=== PATIENT | female | born 2005 | race Caucasian/White ===

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

== ENCOUNTER 2025-01-05 01:40 | Observation (INO) | payer BC, OTHER ==
[2025-01-05 02:06] LABS: Amorphous Sediment,Urine Occasional /hpf; Appearance,Urine Cloudy (Clear); Bilirubin,Urine Negative (Negative); Blood,Urine Moderate (Negative); Color,Urine Colorless; Glucose,Urine (UA) Negative (Negative); Hyaline Casts,Urine 39 /lpf (0-2); Ketones,Urine Negative (Negative); Leukocyte Esterase,Urine Large (Negative); Mucus,Urine Moderate /hpf; Nitrite,Urine Negative (Negative); Protein,Urine 2+ (Negative); RBC,Urine >182 /hpf (0-5); Specific Gravity,Urine 1.015 (1.001-1.035); Squamous Epithelial Cell,Urine 4 /hpf (0-4); Urobilinogen,Urine <2.0 mg/dL (<2.0); WBC,Urine >182 /hpf (0-5)
[2025-01-05] MEDS: LACTATED RINGERS 1,000 ML IV SCH (02:56)
[2025-01-05] MEDS: ceFAZolin 2 GM in DEXTROSE 5% IN WATER 50 ML IVPB SCH (02:57)
[2025-01-05 03:24] LABS: ALT 13 U/L (4-34); AST 23 U/L (14-36); African American GFR (CKD) >90 (>60 ml/min/1.73 sqM); Albumin 3.6 g/dL (3.5-5.0); Alkaline Phosphatase 87 U/L (38-126); Anion Gap 7 mmol/L; Blood Urea Nitrogen 4 mg/dL (7-17); Calcium 9.1 mg/dL (8.4-10.2); Carbon Dioxide 22 mmol/L (22-30); Chloride 104 mmol/L (98-107); Glucose 92 mg/dL (74-99); Non-African American GFR(CKD) >90 (>60 ml/min/1.73 sqM); Sodium 133 mmol/L (137-145); Total Bilirubin 0.5 mg/dL (0.2-1.3); Total Protein 6.6 g/dL (6.3-8.2)
[2025-01-05 03:36] LABS: Basophils # (A) 0.02 10*3/uL (0.00-0.10); Basophils % (A) 0.1 %; Eosinophils # (A) 0.07 10*3/uL (0.04-0.35); Eosinophils % (A) 0.5 %; HCT 30.8 % (37.2-46.3); HGB 10.3 g/dL (12.0-15.0); Lymphocytes # (A) 1.97 10*3/uL (0.90-5.00); Lymphocytes % (A) 12.7 %; MCH 28.9 pg (27.0-32.0); MCHC 33.4 g/dL (32.0-37.0); MCV 86.3 fL (80.0-97.0); Mean Platelet Volume 10.8 fL (9.5-12.2); Monocytes # (A) 1.56 10*3/uL (0.20-1.00); Neutrophils # (A) 11.86 10*3/uL (1.80-7.70); Neutrophils % (A) 76.2 %; Platelet Count 355 10*3/uL (140-440); RBC 3.57 10*6/uL (4.10-5.20); RDW 13.2 % (11.5-14.5); WBC 15.55 10*3/uL (4.50-10.00)
[2025-01-05] MEDS: ACETAMINOPHEN IV (For NPO) 1,000 MG in EMPTY BAG 1 BAG IVPB PRN (03:37)
[2025-01-05] MEDS: ONDANSETRON 4 MG/2 ML VIAL IVP STA (04:01)
[2025-01-05] MEDS: ONDANSETRON 4 MG/2 ML VIAL IM STA (04:02)
[2025-01-05] MEDS ORDERED: ONDANSETRON 4 MG/2 ML VIAL IVP PRN (07:35)
--- NOTE | 2025-01-05 08:19 | P.HPOB ---
History of Present Illness H&P Date: 01/05/25 Chief Complaint: Right flank pain Ms. Britton is a 19 year old at 28 weeks and 5 days gestation with EDC of 03/25/2025 by 12 week who presents for the second admission for right flank pain. At her last admission, approximately 1 month ago, she had suspected right pyelonephritis. She was treated with Rocephin and pain management. She was transitioned to PO antibiotics guided by the urine culture and completed 14 days of treatment with improvement in pain and symptoms. Yesterday evening she presents again with right flank pain. Urinalysis is significant with >182 WBC and >182 RBC. She also presented with nausea, vomiting. She has been afebrile. She has leukocytosis of 15. She was started by the covering physician on Kefzol. Past Medical History Past Medical History: No Reported History Additional Past Medical History / Comment(s): migraines, PCOS History of Any Multi-Drug Resistant Organisms: None Reported Past Surgical History: Adenoidectomy, Tonsillectomy Past Anesthesia/Blood Transfusion Reactions: No Reported Reaction Past Psychological History: No Psychological Hx Reported Smoking Status: Never smoker Past Alcohol Use History: None Reported Past Drug Use History: None Reported Medications and Allergies Home Medications Medication Instructions Recorded Confirmed Type Vit No.179/Iron/Folic 1 tab PO DAILY 12/10/24 01/05/25 History [ Tablet] Amoxic-Pot Clav 875-125Mg 1 tab PO BID 12 Days #24 tab 12/12/24 01/05/25 Rx [Augmentin 875-125] Terconazole [Terazol 7] 1 applicator VAGINAL HS 7 Days #45 12/12/24 01/05/25 Rx gm Allergies Allergy/AdvReac Type Severity Reaction Status Date / Time No Known Allergies Allergy Verified 12/10/24 22:11 Exam Vital Signs Temp Pulse Resp BP Pulse Ox 01/05/25 02:36 97.7 F 96 16 109/58 99 01/05/25 01:46 97.7 F 96 16 109/58 99 Intake and Output 01/04/25 01/05/25 01/05/25 22:59 06:59 14:59 Other: # Voids 1 Weight 81.647 kg Focused physical exam is performed. The patient is in no apparent distress, breathing is non-labored. Abdomen soft, gravid, tender to palpation in RLQ. Extremities are non-tender and non-edematous. NST reactive and reassuring on admission. Results Result Diagrams: 01/05/25 02:45 01/05/25 02:45 Abnormal Lab Results - Last 24 Hours (Table) 01/05/25 01/05/25 01/05/25 Range/Units 01:50 02:45 02:45 WBC 15.55 H (4.50-10.00) 10*3/uL RBC 3.57 L (4.10-5.20) 10*6/uL Hgb 10.3 L (12.0-15.0) g/dL Hct 30.8 L (37.2-46.3) % Immature Gran # 0.07 H (0.00-0.04) 10*3/uL Neutrophils # 11.86 H (1.80-7.70) 10*3/uL Monocytes # 1.56 H (0.20-1.00) 10*3/uL Sodium 133 L (137-145) mmol/L BUN 4 L (7-17) mg/dL Creatinine 0.31 L (0.52-1.04) mg/dL Urine Appearance Cloudy H (Clear) Urine Protein 2+ H (Negative) Urine Blood Moderate H (Negative) Ur Leukocyte Esterase Large H (Negative) Urine RBC >182 H (0-5) /hpf Urine WBC >182 H (0-5) /hpf Urine WBC Clumps Occasional H (None) /hpf Amorphous Sediment Occasional H (None) /hpf Hyaline Casts 39 H (0-2) /lpf Urine Mucus Moderate H (None) /hpf Assessment and Plan Assessment: 19 year old at 28 weeks and 5 days with suspected right nephrolithiasis Plan: IV Kefzol, Tylenol prn pain, Zofran prn nausea/vomiting. Appreciated recommendations from Urology. Continue inpatient management at this time.
[2025-01-05] MEDS: PRENATAL VIT-IRON-FOLIC ACID 1 EACH TABLET PO SCH (10:08)
[2025-01-05 21:11] VITALS: TEMP 97.6
--- NOTE | 2025-01-05 22:31 | P.GSCN ---
History of Present Illness Consult date: 01/05/25 Reason for Consult: UTI Requesting physician: Bita Pina History of present illness: The patient is a 19 year old at 28 weeks and 5 days gestation with EDC of 03/25/2025 by 12 week . She was admitted approximately 1 month ago with right flank pain, presumably due to right pyelonephritis. Urine culture at that time showed Staph hemolyticus. She was treated with IV Rocephin, followed by oral antibiotics. Yesterday, she experienced right flank pain, associated with nausea and vomiting. Urinalysis shows greater than 182 WBC and greater than 182 RBC. She has been treated for 1 prior UTI, approximately 1 year ago. She denies any prior history of urolithiasis. She states that the nausea and vo miting have resolved, and her right flank discomfort is minimal at this time. Review of Systems - Constitutional Denies chills, Denies fever - Gastrointestinal Reports nausea, Reports vomiting - Genitourinary Genitourinary: Reports flank pain, Denies dysuria, Denies hematuria, Denies kidney stones Past Medical History Past Medical History: No Reported History Additional Past Medical History / Comment(s): migraines, PCOS History of Any Multi-Drug Resistant Organisms: None Reported Past Surgical History: Adenoidectomy, Tonsillectomy Past Anesthesia/Blood Transfusion Reactions: No Reported Reaction Past Psychological History: No Psychological Hx Reported Smoking Status: Never smoker Past Alcohol Use History: None Reported Past Drug Use History: None Reported Medications and Allergies Home Medications Medication Instructions Recorded Confirmed Type Vit No.179/Iron/Folic 1 tab PO DAILY 12/10/24 01/05/25 History [ Tablet] Amoxic-Pot Clav 875-125Mg 1 tab PO BID 12 Days #24 tab 12/12/24 01/05/25 Rx [Augmentin 875-125] Terconazole [Terazol 7] 1 applicator VAGINAL HS 7 Days #45 12/12/24 01/05/25 Rx gm Allergies Allergy/AdvReac Type Severity Reaction Status Date / Time No Known Allergies Allergy Verified 12/10/24 22:11 Surgical - Exam Vital Signs Temp Pulse Resp BP Pulse Ox 97.7 F 96 16 109/58 99 01/05/25 01:46 01/05/25 01:46 01/05/25 01:46 01/05/25 01:46 01/05/25 01:46 Results - Labs 01/05/25 02:45 01/05/25 02:45 Abnormal Lab Results - Last 24 Hours (Table) 01/05/25 01/05/25 01/05/25 Range/Units 01:50 02:45 02:45 WBC 15.55 H (4.50-10.00) 10*3/uL RBC 3.57 L (4.10-5.20) 10*6/uL Hgb 10.3 L (12.0-15.0) g/dL Hct 30.8 L (37.2-46.3) % Immature Gran # 0.07 H (0.00-0.04) 10*3/uL Neutrophils # 11.86 H (1.80-7.70) 10*3/uL Monocytes # 1.56 H (0.20-1.00) 10*3/uL Sodium 133 L (137-145) mmol/L BUN 4 L (7-17) mg/dL Creatinine 0.31 L (0.52-1.04) mg/dL Urine Appearance Cloudy H (Clear) Urine Protein 2+ H (Negative) Urine Blood Moderate H (Negative) Ur Leukocyte Esterase Large H (Negative) Urine RBC >182 H (0-5) /hpf Urine WBC >182 H (0-5) /hpf Urine WBC Clumps Occasional H (None) /hpf Amorphous Sediment Occasional H (None) /hpf Hyaline Casts 39 H (0-2) /lpf Urine Mucus Moderate H (None) /hpf Diabetes panel 01/05/25 Range/Units 02:45 Sodium 133 L (137-145) mmol/L Potassium 4.0 (3.5-5.1) mmol/L Chloride 104 (98-107) mmol/L Carbon Dioxide 22 (22-30) mmol/L BUN 4 L (7-17) mg/dL Creatinine 0.31 L (0.52-1.04) mg/dL Glucose 92 (74-99) mg/dL Calcium 9.1 (8.4-10.2) mg/dL AST 23 (14-36) U/L ALT 13 (4-34) U/L Alkaline Phosphatase 87 (38-126) U/L Total Protein 6.6 (6.3-8.2) g/dL Albumin 3.6 (3.5-5.0) g/dL Calcium panel 01/05/25 Range/Units 02:45 Calcium 9.1 (8.4-10.2) mg/dL Albumin 3.6 (3.5-5.0) g/dL Pituitary panel 01/05/25 Range/Units 02:45 Sodium 133 L (137-145) mmol/L Potassium 4.0 (3.5-5.1) mmol/L Chloride 104 (98-107) mmol/L Carbon Dioxide 22 (22-30) mmol/L BUN 4 L (7-17) mg/dL Creatinine 0.31 L (0.52-1.04) mg/dL Glucose 92 (74-99) mg/dL Calcium 9.1 (8.4-10.2) mg/dL Adrenal panel 01/05/25 Range/Units 02:45 Sodium 133 L (137-145) mmol/L Potassium 4.0 (3.5-5.1) mmol/L Chloride 104 (98-107) mmol/L Carbon Dioxide 22 (22-30) mmol/L BUN 4 L (7-17) mg/dL Creatinine 0.31 L (0.52-1.04) mg/dL Glucose 92 (74-99) mg/dL Calcium 9.1 (8.4-10.2) mg/dL Total Bilirubin 0.5 (0.2-1.3) mg/dL AST 23 (14-36) U/L ALT 13 (4-34) U/L Alkaline Phosphatase 87 (38-126) U/L Total Protein 6.6 (6.3-8.2) g/dL Albumin 3.6 (3.5-5.0) g/dL Assessment and Plan (1) Pyelonephritis Current Visit: No Status: Acute Code(s): N12 - TUBULO-INTERSTITIAL NEPHRITIS, NOT SPCF ACUTE OR CHRONIC SNOMED Code(s): 84875470 Plan: The patient is currently receiving cefazolin, pending a urine culture result. We discussed the fact that a KUB x-ray and low-dose CT scan can be safely performed during , but for now a renal ultrasound will be obtained. I did explain to the patient that this may be of limited value as right hydronephrosis is common during . In any case, I will recommend intervention only for intractable symptoms. Time with Patient: Greater than 30
[2025-01-06 01:48] VITALS: BP 96/55; PULSE 81; RESP 15
--- NOTE | 2025-01-06 07:10 | US ---
EXAMINATION TYPE: US kidneys/renal and bladder DATE OF EXAM: 01/05/2025 COMPARISON: NONE CLINICAL INDICATION: Female, 19 years old with history of Right flank pain; patient is . righ t flank pain TECHNIQUE: Grayscale imaging of the bilateral kidneys and urinary bladder: FINDINGS: EXAM MEASUREMENTS: Right Kidney: 12.4 x 6.1 x 5.8 cm Left Kidney: 11.6 x 6.0 x 4.8 cm Right Kidney: slightly enlarged, ? Left Kidney: wnl Bladder: wnl Bilateral Jets seen: yes There is no evidence for hydronephrosis at this point in time. No nephrolithiasis is seen. No sirisha s are identified. The urinary bladder is anechoic. IMPRESSION: Mild dilation of the right renal collecting system which may normal physiology in a patient. [facility], , 01/06/2025 7:08 AM
[2025-01-06 07:16] LABS: Basophils # (A) 0.03 10*3/uL (0.00-0.10); Basophils % (A) 0.3 %; Eosinophils # (A) 0.19 10*3/uL (0.04-0.35); Eosinophils % (A) 1.9 %; HCT 29.7 % (37.2-46.3); HGB 9.5 g/dL (12.0-15.0); MCH 28.4 pg (27.0-32.0); MCV 88.9 fL (80.0-97.0); Mean Platelet Volume 10.4 fL (9.5-12.2); Monocytes # (A) 1.25 10*3/uL (0.20-1.00); Monocytes % (A) 12.5 %; Neutrophils # (A) 6.09 10*3/uL (1.80-7.70); Neutrophils % (A) 60.7 %; Platelet Count 299 10*3/uL (140-440); RBC 3.34 10*6/uL (4.10-5.20); RDW 13.5 % (11.5-14.5); WBC 10.02 10*3/uL (4.50-10.00)
[2025-01-06 07:30] LABS: ALT 10 U/L (4-34); AST 17 U/L (14-36); African American GFR (CKD) >90 (>60 ml/min/1.73 sqM); Alkaline Phosphatase 82 U/L (38-126); Anion Gap 6 mmol/L; Blood Urea Nitrogen <2 mg/dL (7-17); Calcium 8.5 mg/dL (8.4-10.2); Carbon Dioxide 21 mmol/L (22-30); Chloride 107 mmol/L (98-107); Glucose 80 mg/dL (74-99); Non-African American GFR(CKD) >90 (>60 ml/min/1.73 sqM); Potassium 3.8 mmol/L (3.5-5.1); Sodium 134 mmol/L (137-145); Total Bilirubin 0.4 mg/dL (0.2-1.3); Total Protein 5.8 g/dL (6.3-8.2)
--- NOTE | 2025-01-06 10:47 | P.PN ---
Subjective Progress Note Date: 01/06/25 Principal diagnosis: Right flank pain The patient is quite comfortable this morning. She is receiving cefazolin. Urine culture showed greater than 100,000 mixed organisms, likely contaminants. Renal ultrasound showed minimal right pyelocaliectasis, as expected at this stage of . No calculi were seen. Objective - Vital Signs Vital signs: Vital Signs Temp 97.6 F 01/06/25 00:35 Pulse 81 01/06/25 00:35 Resp 15 01/06/25 00:35 BP 96/55 01/06/25 00:35 Pulse Ox 97 01/06/25 00:35 FiO2 Intake & Output 01/05/25 01/06/25 01/06/25 18:59 06:59 18:59 Intake Total 1999 Balance 1999 Intake: IV 2000 Invasive Line 1 1000 Other: # Voids 2 3 - Constitutional General appearance: Present: average body habitus, cooperative, no acute distress - Psychiatric Psychiatric: Present: A&O x's 3 - Labs CBC & Chem 7: 01/06/25 06:47 01/06/25 06:47 Labs: Abnormal Lab Results - Last 24 Hours (Table) 01/06/25 01/06/25 Range/Units 06:47 06:47 WBC 10.02 H (4.50-10.00) 10*3/uL RBC 3.34 L (4.10-5.20) 10*6/uL Hgb 9.5 L (12.0-15.0) g/dL Hct 29.7 L (37.2-46.3) % Immature Gran # 0.06 H (0.00-0.04) 10*3/uL Monocytes # 1.25 H (0.20-1.00) 10*3/uL Sodium 134 L (137-145) mmol/L Carbon Dioxide 21 L (22-30) mmol/L BUN <2 L (7-17) mg/dL Creatinine 0.32 L (0.52-1.04) mg/dL Total Protein 5.8 L (6.3-8.2) g/dL Albumin 3.0 L (3.5-5.0) g/dL Microbiology - Last 24 Hours (Table) 01/05/25 01:50 Urine Culture - Final Urine,Voided Assessment and Plan (1) Pyelonephritis Current Visit: No Status: Acute Code(s): N12 - TUBULO-INTERSTITIAL NEPHRITIS, NOT SPCF ACUTE OR CHRONIC SNOMED Code(s): 67517525 Plan: Ultrasound showed no renal calculi. The right pyelocaliectasis could be due to a right ureteral calculus, but is likely the physiologic hydronephrosis of . In any case, I do not recommend any further evaluation or treatment as long as the patient remains reasonably comfortable. From a urologic standpoint, she may be discharged home and follow-up with me as needed in the future. Please notify me if I can be of any further assistance.
[2025-01-06] MEDS: ACETAMINOPHEN TAB 500 MG TAB PO STA (12:50)
--- NOTE | 2025-01-06 12:56 | P.DS ---
Providers Date of admission: 01/05/25 02:28 Expected date of discharge: 01/06/25 Attending physician: Bita Pina MD Consults: 01/05/25 08:03 Consult Physician Routine Consulting Provider: Aleksey Stallings Consult Reason/Comments: kidney stone Do you want consulting provider notified?: Yes Primary care physician: Stated None Hospital Course: Ms. Britton is 19 year old at 28 weeks and 6 days presenting for second episode of right flank pain, nausea, and vomiting over the past month. On urinalysis, there was suspicion for nephrolithiasis. She was given 2 days of IV Kefzol. Urology was consulted and ordered a RPUS, which just showed related changes and no evidence of a stone. Urine culture was contaminated and merely showed normal skin/genital analilia. The patient's symptoms have improved today. She will go home today with outpatient follow up at my office and with [facility] as needed for recurrent symptoms. Good hydration is encouraged as well as Tylenol as needed for back pain. All questions answered. Patient Condition at Discharge: Good Plan - Discharge Summary New Discharge Prescriptions: No Action Vit No.179/Iron/Folic [ Tablet] 1 tab PO DAILY Amoxic-Pot Clav 875-125Mg [Augmentin 875-125] 1 tab PO BID 12 Days #24 tab Terconazole [Terazol 7] 1 applicator VAGINAL HS 7 Days #45 gm Discharge Medication List Vit No.179/Iron/Folic [ Tablet] 1 tab PO DAILY 12/10/24 [History] Amoxic-Pot Clav 875-125Mg [Augmentin 875-125] 1 tab PO BID 12 Days #24 tab 12/12/24 [Rx] Terconazole [Terazol 7] 1 applicator VAGINAL HS 7 Days #45 gm 12/12/24 [Rx] Follow up Appointment(s)/Referral(s): Bita Pina MD [STAFF PHYSICIAN] - 1 Week Hussein Odom MD [STAFF PHYSICIAN] - 1 Week Discharge Disposition: HOME SELF-CARE
== END 2025-01-06 13:09 | disposition home or self-care (01) ==
LOC: FBPOP 01:40 → 4FBP 02:28
PROVIDERS: ADMIT Obstetrics & Gynecology; ATTEND Obstetrics & Gynecology
DX: O23.03 Infections of kidney in pregnancy, third trimester (principal); N12 Tubulo-interstitial nephritis, not specified as acute or chronic; Z3A.28 28 weeks gestation of pregnancy; Z87.440 Personal history of urinary (tract) infections
CPT/HCPCS: 59025; 99213; 96365; 96366 ×2; 96367; 96375; 80053 ×2; 85025 ×2; 81001; 87086; 76770; G0378 ×2; G0379; J0690 ×2; J2405; S0197 ×2; J0131

== ENCOUNTER 2025-01-23 03:31 | Outpatient (CLI) | payer BC, OTHER ==
[2025-01-23 04:39] LABS: Amorphous Sediment,Urine Rare /hpf; Appearance,Urine Cloudy (Clear); Bacteria,Urine Few /hpf; Bilirubin,Urine Negative (Negative); Blood,Urine Small (Negative); Color,Urine Colorless; Glucose,Urine (UA) Negative (Negative); Ketones,Urine Negative (Negative); Leukocyte Esterase,Urine Large (Negative); Mucus,Urine Rare /hpf; Nitrite,Urine Negative (Negative); PH, Urine 6.5 (5.0-8.0); Protein,Urine 1+ (Negative); RBC,Urine 4 /hpf (0-5); Squamous Epithelial Cell,Urine 4 /hpf (0-4); Urobilinogen,Urine <2.0 mg/dL (<2.0); WBC,Urine >182 /hpf (0-5)
[2025-01-23] MEDS: LACTATED RINGERS 1,000 ML IV ONE (05:04)
[2025-01-23 05:09] LABS: Basophils # (A) 0.02 10*3/uL (0.00-0.10); Basophils % (A) 0.2 %; Eosinophils # (A) 0.13 10*3/uL (0.04-0.35); Eosinophils % (A) 1.2 %; HGB 10.3 g/dL (12.0-15.0); Lymphocytes # (A) 2.33 10*3/uL (0.90-5.00); Lymphocytes % (A) 20.7 %; MCH 27.5 pg (27.0-32.0); MCHC 32.2 g/dL (32.0-37.0); MCV 85.6 fL (80.0-97.0); Mean Platelet Volume 10.4 fL (9.5-12.2); Monocytes # (A) 1.44 10*3/uL (0.20-1.00); Monocytes % (A) 12.8 %; Neutrophils # (A) 7.28 10*3/uL (1.80-7.70); Neutrophils % (A) 64.6 %; Platelet Count 355 10*3/uL (140-440); RBC 3.74 10*6/uL (4.10-5.20); RDW 13.6 % (11.5-14.5); WBC 11.26 10*3/uL (4.50-10.00)
[2025-01-23 06:11] VITALS: BP 119/61; PULSE 94; RESP 16; TEMP 96.1
--- NOTE | 2025-02-12 15:06 | P.MSEPDOC ---
Presenting Problems - Arrival Data Date of Arrival on Unit: 01/23/25 Time of Arrival on Unit: 03:31 Mode of Transport: Ambulatory - Complaint OB-Reason for Admission/Chief Complaint: Pain Comment: pt. present to unit due to right groin pain that started yest01/22 around 6pm, pt. states she took tylenol around 0200 and no relief, pt. rating pain 8/10. Medical History - Information : 1 Para: 0 Term: 0 : 0 Abortions: Spontaneous or Elective: 0 Number of Living Children: 0 - Gestational Age Gestational Age by MI (wks/days): 31 Weeks and 2 Days Review of Systems - Review of Systems Constitutional: No problems Breast: No problems ENT: No problems Cardiovascular: No problems Respiratory: No problems Gastrointestinal: No problems Genitourinary: No problems Musculoskeletal: No problems Neurological: No problems Skin: No problems Vital Signs - Temperature Temperature: 96.1 F - Pulse Pulse Oximetery Pulse Rate: 94 Pulse Assessment Method: Pulse Oximetry - Respirations Respiratory Rate: 16 O2 Sat by Pulse Oximetry: 99 - Blood Pressure Right Arm Blood Pressure: 119/61 Blood Pressure Mean: 80 Blood Pressure Source: Automatic Cuff Medical Screen Scoring - Cervical Exam Membranes: Intact - Uterine Contractions Intensity: Absent Resting: Soft to palpation - Assessment - Baby A Baseline FHR: 135 Heart Rate - NICHD Category: Category I (Normal) NST: Reactive Physician Notification - Physician Notified Physician Notified Date: 01/23/25 Physician Notified Time: 03:58 Physician: Bita Pina Maternal Triage Index - Maternal Triage Index Presenting for scheduled procedure w/no complaint: No - Stat/Priority 1 Stat Priority 1: No - Urgent/Priority 2 Urgent Priority 2: No - Prompt/Priority 3 Prompt Priority 3: No - Non-Urgent/Priority 4 Non-Urgent Priority 4: Yes Criteria Met for Priority 4: pt. present to unit due to right groin pain that started yest01/22 around 6pm, pt. states she took tylenol around 0200 and no relief, pt. rating pain 8/10. Disposition - Disposition OB Disposition: Discharge to home Discharge Date: 01/23/25 Discharge Time: 05:45 I agree with the RN Medical Screening Exam: Yes Physician's MSE Comment: I have neither seen nor examined the patient Case reviewed; plan agreed upon as documented in EMR&OBIX.: Yes Diagnosis: RELATED CONDITIONS, UNSPECIFIED, THIRD TRIMESTER
== END 2025-01-23 05:45 | disposition home or self-care (01) ==
LOC: FBPOP 03:31
PROVIDERS: ATTEND Obstetrics & Gynecology
DX: O26.893 Other specified pregnancy related conditions, third trimester (principal); Z3A.31 31 weeks gestation of pregnancy
CPT/HCPCS: 36415; 59025; 81001; 85025; 87086; 96360; 99213; 99214